=== PATIENT | female | born 1985 | race Hispanic/Latino ===

== ENCOUNTER 2017-02-22 09:59 | Emergency (ER) | payer BC ==
[2017-02-22 10:05] VITALS: BP 121/75; PULSE 81; TEMP 99; O2SAT 99; BMI 23.6
--- NOTE | 2017-02-22 10:28 | ED PDOC ---
Upper Extremity Pain/Injury Time Seen by Provider: 02/22/17 10:15 Chief Complaint (Nursing): Upper Extremity Problem/Injury Chief Complaint (Provider): Upper Extremity Problem/Injury History Per: Patient History/Exam Limitations: no limitations Onset/Duration Of Symptoms: Days (x3 days) Current Symptoms Are (Timing): Still Present Additional Complaint(s): 31 y/o female presents to the emergency department with a complaint of right upper arm swelling after doing a different yoga position 3 days ago. Patient states she cannot straighten arm completely with minimal ability to flex because swelling prevents further bending. Reports on , 02/20/2017, she was sore and swelling began on Friday. Denies headache, shortness of breath, dizziness, vision changes, fall, sound of pop or snap while preforming position , recent travels, or history of blood clots. Past Medical History Reviewed: Historical Data, Nursing Documentation, Vital Signs Vital Signs: Last Vital Signs Temp 99 F 02/22/17 10:04 Pulse 81 02/22/17 10:04 Resp BP 121/75 02/22/17 10:04 Pulse Ox 99 02/22/17 10:04 - Medical History Other PMH: Childhood Leukemia - Surgical History Surgical History: No Surg Hx - Family History Family History: States: Unknown Family Hx - Social History Current smoker - smoking cessation education provided: No Alcohol: None Drugs: Denies - Allergies Allergies/Adverse Reactions: Allergies Allergy/AdvReac Type Severity Reaction Status Date / Time No Known Allergies Allergy Verified 02/22/17 10:20 Review of Systems ROS Statement: Except As Marked, All Systems Reviewed And Found Negative Constitutional: Negative for: Other (Fall) Eyes: Negative for: Vision Change Respiratory: Negative for: Shortness of Breath Musculoskeletal: Positive for: Arm Pain (Right upper arm swelling) Neurological: Negative for: Headache, Dizziness Physical Exam - Reviewed Nursing Documentation Reviewed: Yes Vital Signs Reviewed: Yes - Physical Exam Appears: Positive for: Non-toxic, No Acute Distress Head Exam: Positive for: ATRAUMATIC, NORMAL INSPECTION, NORMOCEPHALIC Skin: Positive for: Normal Color, Warm, Dry Neck: Positive for: Normal, Supple Cardiovascular/Chest: Positive for: Regular Rate, Rhythm. Negative for: Murmur Respiratory: Positive for: Normal Breath Sounds. Negative for: Accessory Muscle Use, Respiratory Distress Extremity: Positive for: Tenderness (Tenderness to the entire right humerus. ), Capillary Refill (Pulses Intact. Neurovascularly intact.), Swelling (Swelling to the right upper arm. No edema. ). Negative for: Other (No palpable joint tenderness) Neurologic/Psych: Positive for: Alert, Oriented (x3) - Laboratory Results Result Diagrams: 02/22/17 10:47 02/22/17 10:47 - ECG O2 Sat by Pulse Oximetry: 99 (RA) Pulse Ox Interpretation: Normal Medical Decision Making Medical Decision Making: Time: 10:20 Initial impression: Initial plan: --CMP --Urine DIP & Preg --CBC w/ diff --Erythrocyte Sedimentation Rate --PTT & Prothrombin --Duplex Upper Extrm US --US Extremity Non Vascular US --Urinalysis --Reevaluation Scribe Attestation: Documented by Jessica Grider, acting as a scribe for Rina Salas MD. Provider Scribe Attestation: All medical record entries made by the Scribe were at my direction and personally dictated by me. I have reviewed the chart and agree that the record accurately reflects my personal performance of the history, physical exam, medical decision making, and the department course for this patient. I have also personally directed, reviewed, and agree with the discharge instructions and disposition. 1.00pm patient in a hurry to leave. As long as there is no life threatening situation she does not want further testing. Father at bedside - unable to convince her to do another imaging study (MRI of the UE as per Dr. Monzon's recommendation if muscle injury is suspected). Patient understands the consequences of not having further imaging for definitive diagnosis. Father understands that patient can make her own decisions. Disposition - Clinical Impression Clinical Impression: Swelling of upper extremity - Patient ED Disposition Is Patient to be Admitted: No Doctor Will See Patient In The: Office Counseled Patient/Family Regarding: Diagnosis, Need For Followup - Disposition Referrals: Lizzette Erickson [Outside] Disposition: Routine/Home Disposition Time: 13:22 Condition: STABLE Instructions: Musculoskeletal Pain (ED) Forms: [employer] ([place]) - POA Present On Arrival: Falls Or Trauma
[2017-02-22 10:50] LABS: BASO % 0.6 % (0.0-2.0); EOS # 0.1 K/uL (0.0-0.7); EOS % 1.8 % (0.0-4.0); HEMATOCRIT 42.7 % (34.0-47.0); LYMPH # 2.6 K/uL (1.0-4.3); LYMPH % 30.9 % (20.0-40.0); MEAN CELL VOLUME 87.9 fl (81.0-99.0); MEAN CORPUSCULAR HEMOGLOBIN 30.2 pg (27.0-31.0); MEAN CORPUSCULAR HGB CONC 34.3 g/dL (33.0-37.0); MEAN PLATELET VOLUME 8.6 fl (7.2-11.7); MONO # 0.5 K/uL (0.0-0.8); MONO % 5.6 % (0.0-10.0); NEUT # 5.1 K/uL (1.8-7.0); NEUT % 61.1 % (50.0-75.0); RED CELL DISTRIBUTION WIDTH 12.2 % (11.5-14.5); WHITE BLOOD COUNT 8.3 K/uL (4.8-10.8)
[2017-02-22 11:01] LABS: ALB/GLOB RATIO 1.5 (1.0-2.1); ALKALINE PHOSPHATASE 53 U/L (38-126); ALT/SGPT 102 U/L (9-52); AST/SGOT 480 U/L (14-36); BILIRUBIN,TOTAL 0.8 mg/dl (0.2-1.3); BLOOD UREA NITROGEN 10 mg/dl (7-17); CALCIUM 9.7 mg/dL (8.4-10.2); CARBON DIOXIDE 26 mmol/L (22-30); CHLORIDE 102 mmol/L (98-107); GFR AFRICAN-AMERICAN > 60; GLUCOSE,RANDOM 74 mg/dL (65-105); SODIUM 139 mmol/l (132-148); TOTAL PROTEIN 7.9 G/DL (6.3-8.2)
[2017-02-22 11:15] LABS: PARTIAL THROMBOPLASTIN TIME 27.4 Seconds (25.6-37.1)
--- NOTE | 2017-02-22 13:24 | US ---
PROCEDURE: Right Upper Extremity Venous Doppler HISTORY: swelling and pain COMPARISON: None available. TECHNIQUE: Right extremity deep veins, including the lower internal jugular, subclavian, axillary and brachial veins, were evaluated flow, compressibility and respiratory phasicity. FINDINGS: Normal flow, compressibility and respiratory phasicity was observed in the right upper extremity deep veins. IMPRESSION: No evidence of deep venous thrombosis.
--- NOTE | 2017-02-22 13:25 | US ---
PROCEDURE: Limited nonvascular right upper extremity ultrasound HISTORY: right UE swelling after doing crossfit exercises COMPARISON: None TECHNIQUE: Targeted high-resolution ultrasound of the right upper arm was performed. FINDINGS: There is no evidence of subcutaneous edema, fluid collection or hematoma. IMPRESSION: No sonographic abnormality at the site of upper extremity swelling. There is a clinical concern, an MRI of the arm is recommended for further evaluation.
== END 2017-02-22 13:27 | disposition home or self-care (01) ==
LOC: H.ER 09:59
DX: R22.31 Localized swelling, mass and lump, right upper limb (principal)